=== PATIENT | male | born 1950 | race Caucasian/White ===

== ENCOUNTER → 2019-08-31 | Outpatient (CLI) | payer MEDICARE ==
--- NOTE | 2019-08-31 08:17 | RAD ---
SCAN OF ABDOMINAL AORTA History: Atherosclerosis of aorta, hypertension Comparison: None. Findings: Multiple sonographic images of the abdominal aorta are submitted. Exam is limited apparently due to bowel gas and patient's body habitus. Proximal abdominal aorta is diffusely dilated up to 3.8 cm, mid segment 3.2 cm, distally about 3.2 cm. No focal aneurysmal dilatation is demonstrated. There is scattered plaque of the abdominal aorta. Peak systolic velocities were 106 cm/s at the mid segment and 73 cm/s distally, not submitted of proximal segment. There is segmental visualization of the inferior vena cava. Region of the common iliac arteries was obscured by bowel gas on this exam. Impression: 1. There is diffuse fusiform dilatation of the abdominal aorta greater proximally up to 3.8 cm, to lesser at the mid to distal segments on the order of 3.2 cm. 2. There is scattered plaque of the abdominal aorta. Electronically signed by: Regan Martinez MD (08/31/2019 8:15 AM) [id number]
== END | disposition home or self-care (01) ==
LOC: US 07:34
PROVIDERS: ATTEND Family Medicine
DX: I10 Essential (primary) hypertension (principal); I70.0 Atherosclerosis of aorta
CPT/HCPCS: 76770

== ENCOUNTER → 2021-03-10 | Outpatient (CLI) | payer MEDICARE ==
--- NOTE | 2021-03-10 08:31 | RAD ---
EXAM: ULTRASOUND ABDOMINAL AORTA. HISTORY: Aortic atherosclerosis, aneurysm. COMPARISON: 08/31/2019. FINDINGS: Sonographic evaluation of the abdominal aorta and common iliac arteries was performed. Visu alization is limited secondary to body habitus and bowel gas. Proximally, the abdominal aorta measures 3.6 cm. In its midportion, 3.3 cm. Distally, 3.3 cm. The common iliac arteries could not be visualized currently There is no evidence of stenosis on Doppler. IMPRESSION: 1. Stable small infrarenal abdominal aortic aneurysm measuring up to 3.3 cm. Ongoing follow-up is rec ommended. Electronically signed by: Kathy St MD (03/10/2021 8:29 AM) [facility]
== END ==
LOC: US 07:45
PROVIDERS: ATTEND Family Medicine
DX: I70.0 Atherosclerosis of aorta (principal)
CPT/HCPCS: 76770